=== PATIENT | male | born 1975 | race Caucasian/White ===

== ENCOUNTER 2020-09-04 22:31 | Emergency (ER) | payer OTHER, SELFPAY ==
[2020-09-04 22:33] VITALS: BP 160/103; PULSE 88; RESP 16; TEMP 36.9; O2SAT 97; BMI 31.3
[2020-09-04 22:42] VITALS: BMI 31.3
--- NOTE | 2020-09-04 22:53 | [facility].EDURI ---
ED Disposition Clinical Impression: Pharyngitis Qualifiers: Pharyngitis/tonsillitis etiology: unspecified etiology Qualified Code(s): J02.9 - Acute pharyngitis, unspecified Disposition: Home, Self-Care Condition on Discharge: Good Instructions: DI for Pharyngitis/Tonsillopharyngitis -- Adult Additional Instructions: use meds and see pcp and ent for follow up Prescriptions: cephALEXin [cephALEXin 500mg capsule*] 500 mg PO TID #30 cap Transmission Status: Pending to [id number] predniSONE [Prednisone 20mg Tab] 20 mg PO BID #10 tab Transmission Status: Pending to [id number] Referrals: Sharron Zamarripa [Primary Care Provider] - - Critical Care Critical Care Time: No Attestation: On 09/04/20, the high probability of a clinically significant, sudden or life threatening deterioration of the following system(s) required my full and direct attention, intervention and personal management. The time I documented below is in addition to time spent performing reported procedures but includes the following listed in this critical care notation. Medical Decision Making - Medical Records Medical records reviewed: Yes: I reviewed the patient's medical records. - [place] Inquiry Pt receiving controlled substance: No Vital Signs: 09/04/20 22:33 Temperature 98.5 F Temperature Source Oral Pulse Rate [Right] 88 Respiratory Rate 16 Blood Pressure [Right Arm] 160/103 H Blood Pressure Mean [Right Arm] 122 02 Sat by Pulse Oximetry 97 - Lab Data Lab results reviewed: Yes: I reviewed the patient's lab results. Lab Results 09/04/20 22:40: Group A Strep Rapid Negative 09/04/20 23:28: WBC 12.8 H, RBC 5.98, Hgb 16.8, Hct 50.4, MCV 84.4, MCH 28.2, MCHC 33.4, RDW 14.1, Plt Count 222, MPV 7.8, Neut % (Auto) 57.9, Lymph % (Auto) 31.2, [place] % (Auto) 5.4, Eos % (Auto) 4.3, Baso % (Auto) 1.2, Neut # (Auto) 7.4, Lymph # (Auto) 4.0, [place] # (Auto) 0.7, Eos # (Auto) 0.6 H, Baso # (Auto) 0.2 09/04/20 23:28: Sodium 140, Potassium 3.9, Chloride 104, Carbon Dioxide 25, Anion Gap 14.9, BUN 19, Creatinine 1.10, Estimated Creat Clear 110, Estimated GFR 73, Est GFR ( Amer) 88, Glucose 151 H, Calcium 10.0 Result diagrams: 09/04/20 23:28 09/04/20 23:28 Orders (Tests/Meds): ED MEDICATIONS Generic Name Dose Route Start Last Admin Trade Name Freq PRN Reason Stop Dose Admin Ceftriaxone Sodium 1 gm/ 50 mls @ 100 mls/hr 09/05/20 01:15 09/05/20 01:09 Sodium Chloride IV 09/19/20 01:14 100 mls/hr Q24H FAREED Administration Protocol Discontinued Medications Generic Name Dose Route Start Last Admin Trade Name Freq PRN Reason Stop Dose Admin Iopamidol 75 ml 09/05/20 00:32 09/05/20 00:34 Iopamidol-370 (76%);100ml Bottle IV 09/05/20 00:33 75 ml ONCE ONE Administration Ketorolac Tromethamine 30 mg 09/05/20 01:06 09/05/20 01:09 Ketorolac 30mg/Ml Vial IV 09/05/20 01:07 30 mg ONCE ONE Administration Methylprednisolone Sodium Succinate 125 mg 09/05/20 01:06 09/05/20 01:09 Methylprednisolone Sod Succ 125mg Vial IV 09/05/20 01:07 125 mg ONCE ONE Administration Sodium Chloride 10 ml 09/05/20 00:32 09/05/20 00:34 Sodium Chloride 0.9% 10ml Syr (Rad Only) IV 09/05/20 00:33 10 ml ONCE ONE Administration ORDERS Category Date Time Status Strep Screen Confirmation Stat Micro 09/04/20 22:40 Received - Radiology Data #1 Image(s): Chest Image Reviewed: Yes I reviewed the patient's radiology image Preliminary Findings: Normal/NAD - CT Data CT Scan: Other (soft tissue neck ) Time Received: 01:[address] Reviewed: Yes: I have viewed the radiologist's interpretation Preliminary Findings: Abnormal (no abscess ) Medical Decision Narrative: no abscess with nonspecific ct and stable exam and labs URI/Sore Throat HPI - General Chief Complaint: Upper Respiratory Infection Stated Complaint: sore throat/pain Time Seen by Provider: 09/04/20 22:40 Mode of A
[2020-09-04 23:22] LABS: Strep Scrn Group A (Rapid) Negative (Negative)
[2020-09-04 23:35] LABS: Basophils # 0.2 K/mm3 (0-0.2); Basophils % 1.2 % (0.1-2.0); Eosinophils # 0.6 K/mm3 (0.0-0.4); Eosinophils % 4.3 % (0.1-12.0); Hematocrit 50.4 % (42.0-52.0); Hemoglobin 16.8 g/dL (14.1-18.0); Lymphocytes % 31.2 % (10-50); Mean Corpuscular HGB Conc 33.4 g/dL (31.8-35.4); Mean Corpuscular Hemoglobin 28.2 pg (27.0-31.2); Mean Corpuscular Volume 84.4 fl (80-94); Mean Platelet Volume 7.8 fl (7.4-10.4); Monocytes # 0.7 K/mm3 (0.1-1.0); Monocytes % 5.4 % (1.7-9.3); Neutrophils # 7.4 K/mm3 (1.8-7.8); Neutrophils % 57.9 % (37.0-80.0); Platelet Count 222 K/mm3 (142-424); Red Blood Count 5.98 M/mm3 (4.60-6.20); Red Cell Distribution Width 14.1 % (11.5-17.5); White Blood Count 12.8 K/mm3 (4.8-10.8)
[2020-09-04 23:44] LABS: Chloride 104 mmol/L (98-107)
[2020-09-04 23:45] LABS: Potassium 3.9 mmoL/L (3.5-5.1); Sodium 140 mmol/L (136-145)
[2020-09-04 23:47] LABS: Blood Urea Nitrogen 19 mg/dl (9-20); Creatinine Clearance Estimated 110 mL/min (50-200); Estimated Glomerular Filt Rate 73 ml/min (>60); GFR (African American) 88 ML/MIN (>60)
[2020-09-04 23:48] LABS: Anion Gap 14.9 mEq/L (5-15); Carbon Dioxide 25 mmol/L (22.0-30.0); Glucose 151 mg/dl (74-100)
[2020-09-05 01:33] VITALS: BP 147/72; PULSE 88; RESP 16; TEMP 36.9; O2SAT 99
--- NOTE | 2020-09-05 23:16 | XR_ITS ---
PROCEDURE INFORMATION: Exam: XR Chest Exam date and time: 09/05/2020 11:16 PM Age: 45 years old Clinical indication: Patient HX: Throat pain and swelling. PT says 1o yrs ago they found nodule on his left lung; Additional info: SOB TECHNIQUE: Imaging protocol: XR of the chest. Views: 2 views. COMPARISON: No relevant prior studies available. FINDINGS: Lungs: Left perihilar/AP window calcific density measuring 5 cm in craniocaudal dimension compatible with calcified granuloma. No airspace opacities to suggest consolidation. Pleural spaces: Unremarkable. No pleural effusion. No pneumothorax. Heart/Mediastinum: No cardiomegaly. Bones/joints: Unremarkable. IMPRESSION: No acute findings.
--- NOTE | 2020-09-05 23:17 | CT_ITS ---
PROCEDURE INFORMATION: Exam: CT Neck With Contrast Exam date and time: 09/05/2020 11:17 PM Age: 45 years old Clinical indication: Patient HX: Throat pain and swelling; Additional info: Throat swelling TECHNIQUE: Imaging protocol: Computed tomography images of the neck with contrast. Radiation optimization: All CT scans at this facility use at least one of these dose optimization techniques: automated exposure control; mA and/or kV adjustment per patient size (includes targeted exams where dose is matched to clinical indication); or iterative reconstruction. Contrast material: ISOVUE; Contrast volume: 75 ml; Contrast route: IV; COMPARISON: No relevant prior studies available. FINDINGS: Paranasal sinuses: Nonspecific air-fluid levels noted within the piriform sinuses. Nasopharynx: Unremarkable. Oropharynx: Unremarkable. No significant tonsillar enlargement. Hypopharynx: Nonspecific mild hypopharynx mucosal thickening, could be infectious or inflammatory. Larynx: Unremarkable. Normal epiglottis. Retropharyngeal space: Unremarkable. Submandibular/Parotid glands: Normal. Glands are normal in size. Thyroid: Normal. No enlarged or calcified nodules. Lymph nodes: Unremarkable. No lymphadenopathy. Trachea: Visualized trachea is unremarkable. Lungs: Unremarkable as visualized. Bones/joints: Moderate C5-C6 discogenic degenerative changes with uncovertebral joint osteophytosis. Soft tissues: Unremarkable. No significant soft tissue swelling. IMPRESSION: 1. Nonspecific mild hypopharynx mucosal thickening, could be infectious or inflammatory. 2. Nonspecific air-fluid levels noted within the piriform sinuses.
== END 2020-09-05 01:35 | disposition home or self-care (01) ==
PROVIDERS: Emergency Provider Emergency Medicine; PCP Nurse Practitioner Family
DX: J02.9 Acute pharyngitis, unspecified (principal)
CPT/HCPCS: 70491; 71046; 80048; 85025; 87430; 96375; 99283; Q9967